=== PATIENT | female | born 1960 | race Caucasian/White ===

== ENCOUNTER 2018-04-02 18:13 | Emergency (ER) | payer BC ==
[2018-04-02 19:32] LABS: #Basophils 0.1 thou/uL (0.0-0.2); #Eosinphils 0.2 thou/uL (0.0-0.7); #Lymphocytes 2.5 thou/uL (1.20-3.40); #Monocytes 0.5 thou/uL (0.11-0.59); #Neutrophils 6.3 thou/uL (1.40-6.50); %Basophils 0.7 % (0.0-1.0); %Eosinophils 2.6 % (0.0-10.0); %Lymphocytes 26.4 % (21.0-51.0); %Monocytes 5.2 % (0.0-10.0); %Neutrophils 65.2 % (42.0-75.0); Hemoglobin 14.4 g/dL (12.0-16.0); Mean Corpuscular HGB CONC 33.9 g/dL (32.0-36.0); Mean Corpuscular Hemoglobin 28.9 pg (27.0-31.0); Mean Corpuscular Volume 85.4 fL (78.0-98.0); Mean Platelet Volume 6.3 fL (7.4-10.4); Platelet Count 272 thou/uL (130-400); RBC Distribution Width 12.8 % (11.5-14.5); White Blood Cell (WBC) Count 9.6 thou/uL (4.8-10.8)
--- NOTE | 2018-04-02 19:32 | ULT ---
LEFT LOWER EXTREMITY VENOUS DUPLEX EXAM: 04/02/18 HISTORY: Left leg pain and swelling. Real time color doppler evaluation of the left lower extremity was performed from groin to calf. This includes evaluation of the common femoral, superficial and profunda femoral, saphenous, popliteal an d posterior tibial veins. This shows patent deep venous system with normal compressibility and augmentation. IMPRESSION: No evidence of DVT of the left lower extremity. POS: [facility]
[2018-04-02 20:01] LABS: CKMB 2.1 ng/mL (0-6.6); Troponin I Less than 0.010 ng/mL (< 0.028)
[2018-04-02 20:02] LABS: ALT (SGPT) 29 U/L (8-55); AST (SGOT) 24 U/L (5-34); Albumin 4.5 g/dL (3.5-5.0); Alkaline Phosphatase 101 U/L (40-150); Anion Gap 14 mmol/L (10-20); BUN (Urea Nitrogen) 30 mg/dL (9.8-20.1); Bilirubin, Total 0.4 mg/dL (0.2-1.2); Calc. Creatinine Clearance 0 mL/min (70-130); Calcium 9.9 mg/dL (7.8-10.44); Carbon Dioxide 23 mmol/L (22-29); Chloride 104 mmol/L (98-107); Estimated GFR-MDRD 70; Globulin 2.8 g/dL (2.4-3.5); Glucose 207 mg/dL (70-105); Protein, Total 7.3 g/dL (6.0-8.3); Sodium 137 mmol/L (136-145)
== END 2018-04-02 21:51 | disposition home or self-care (01) ==
LOC: ERS 18:13
DX: S83.92XA Sprain of unspecified site of left knee, initial encounter (principal); X58.XXXA Exposure to other specified factors, initial encounter
CPT/HCPCS: 36415; 80053; 82553; 84484; 85025; 85379

== ENCOUNTER 2018-12-08 14:19 | Outpatient (CLI) | payer BC | END 2018-12-08 14:20 | disposition home or self-care (01) | LOC: ULT 14:19 | PROVIDERS: ATTEND Internal Medicine | DX: R01.1 Cardiac murmur, unspecified (principal); I08.1 Rheumatic disorders of both mitral and tricuspid valves; I25.3 Aneurysm of heart | CPT/HCPCS: 93306 ==

== ENCOUNTER 2019-02-24 12:16 | Outpatient (CLI) | payer BC ==
--- NOTE | 2019-03-04 09:38 | MMO ---
Bilateral MAMMO Bilat Screen [facility]. CLINICAL HISTORY: Patient is 58 years old and is seen for screening. The patient has no family history of breast cancer. The patient has no personal history of cancer. The patient has a history of left Cyst Aspiration at age 28. VIEWS: The views performed were: bilateral craniocaudal with tomosynthesis and bilateral mediolateral oblique with tomosynthesis. FILMS COMPARED: The present examination has been compared to prior imaging studies performed at [facility] on 09/19/2014, 10/16/2015, 11/27/2016 and 12/25/2017. MAMMOGRAM FINDINGS: There are scattered fibroglandular densities. There are no suspicious masses, suspicious calcifications, or new areas of architectural distortion. IMPRESSION: THERE IS NO MAMMOGRAPHIC EVIDENCE OF MALIGNANCY. A ROUTINE FOLLOW-UP MAMMOGRAM IN 1 YEAR IS RECOMMENDED. THE RESULTS OF THIS EXAM WERE SENT TO THE PATIENT. ACR BI-RADS Category 1 - Negative MAMMOGRAPHY NOTE: 1. A negative mammogram report should not delay a biopsy if a dominant of clinically suspicious mass is present. 2. Approximately 10% to 15% of breast cancers are not detected by mammography. 3. Adenosis and dense breasts may obscure an underlying neoplasm.
== END 2019-02-24 12:17 | disposition home or self-care (01) ==
LOC: BICMAMMO 12:16
PROVIDERS: ATTEND Obstetrics & Gynecology
DX: Z12.31 Encounter for screening mammogram for malignant neoplasm of breast (principal)
CPT/HCPCS: 77063; 77067

== ENCOUNTER → 2019-07-11 | Day surgery (SDC) | payer BC ==
[2019-07-08 10:34] VITALS: BMI 28.3
[~2019-07-11] MED LIST: Lidocaine 1% PF 5 ML VIAL ONE; PROPOFOL 20 ML ONE
[2019-07-11 10:37] LABS: Prothrombin Time 12.7 SEC (12.0-14.7)
[2019-07-11 10:38] LABS: PTT 27.1 SEC (22.9-36.1)
[2019-07-11 10:54] LABS: Anion Gap 13 mmol/L (10-20); BUN (Urea Nitrogen) 23 mg/dL (9.8-20.1); Calc. Creatinine Clearance 87 mL/min (70-130); Calcium 9.3 mg/dL (7.8-10.44); Carbon Dioxide 25 mmol/L (22-29); Chloride 106 mmol/L (98-107); Estimated GFR-MDRD 78; Glucose 136 mg/dL (70-105); Potassium 4.3 mmol/L (3.5-5.1); Sodium 140 mmol/L (136-145)
--- NOTE | 2019-07-11 15:14 | OP ---
DATE OF PROCEDURE: 07/11/2019 PROCEDURE PERFORMED: Transesophageal echocardiogram. INDICATIONS: A 59-year-old woman with aneurysm of the interatrial septum. DESCRIPTION OF PROCEDURE: The patient was taken to the PACU. The patient was sedated by Anesthesiology. A transesophageal probe was placed into the distal esophagus and stomach. Echocardiographic images were obtained. The transesophageal probe was removed. FINDINGS: 1. Normal left ventricular systolic function. 2. Normal chamber dimensions. 3. Normal mitral and aortic valves. 4. Trivial mitral regurgitation. 5. Aneurysm of the interatrial septum. 6. Patent foramen ovale by contrast bubble exam. 7. Atherosclerotic debris in the descending aorta. IMPRESSION: Aneurysm of the interatrial septum with a patent foramen ovale. Job ID: [id number]
--- NOTE | 2019-07-11 16:29 | EKG ---
Test Reason : PREOP Blood Pressure : / mmHG Vent. Rate : 047 BPM Atrial Rate : 047 BPM P-R Int : 222 ms QRS Dur : 106 ms QT Int : 496 ms P-R-T Axes : 073 003 051 degrees QTc Int : 438 ms Marked sinus bradycardia with 1st degree A-V block Abnormal ECG Confirmed by DR. Berta LEACH ([id number]) on 07/11/2019 4:29:05 PM Referred By: TJ Confirmed By:DR. Berta LEACH
== END ==
LOC: CCL 09:57
PROVIDERS: ATTEND Internal Medicine Cardiovascular Disease
PROC: B24BZZ4 Ultrasonography of Heart with Aorta, Transesophageal (ICD-10-PCS; principal; 2019-07-11)
DX: I25.3 Aneurysm of heart (principal); Q21.1 Atrial septal defect; E11.9 Type 2 diabetes mellitus without complications; E78.5 Hyperlipidemia, unspecified; Z79.84 Long term (current) use of oral hypoglycemic drugs; Z79.899 Other long term (current) drug therapy
CPT/HCPCS: 36415; 80048; 85610; 85730; 93005; 93010; 93312; J2001; J2704

== ENCOUNTER 2021-06-04 07:54 | Outpatient (CLI) | payer BC | END 2021-06-04 07:55 | disposition home or self-care (01) | LOC: BICMAMMO 07:54 | PROVIDERS: ATTEND Obstetrics & Gynecology | DX: Z12.31 Encounter for screening mammogram for malignant neoplasm of breast (principal) | CPT/HCPCS: 77063; 77067 ==